=== PATIENT | female | born 1980 | race African-American/Black ===

== ENCOUNTER 2016-12-18 05:40 | Inpatient (IN) | payer OTHER ==
[2016-12-12 14:26] VITALS: BMI 39.5
--- NOTE | 2016-12-18 06:52 | HP ---
History & Physical Update - History History: No Change - Physical Physical: No Change - Assessment Assessment: No Change - Plan Plan: No Change
[2016-12-18] MEDS ORDERED: HYDROmorphone HCL CARPU-JECT 1 MG/1 ML DISP.SYRIN IVPB PRN (06:55)
[2016-12-18] MEDS ORDERED: oxyCODONE HCL 5 MG TABLET PO PRN (06:55)
[2016-12-18] MEDS ORDERED: IBUPROFEN 800 MG/8 ML IJ IVPB PRN (06:55)
[2016-12-18] MEDS ORDERED: CEFAZOLIN 2 GM/D5W 50 ML IVPB ONE (06:55)
[2016-12-18] MEDS ORDERED: SIMETHICONE 80 MG TAB.CHEW (FP) PO PRN (07:00)
[2016-12-18] MEDS ORDERED: DINOPROSTONE 10 MG VAGINAL SUPPOSITORY VG ONE (07:00)
[2016-12-18] MEDS ORDERED: ceFAZolin SODIUM 1 GM VIAL ONE ×3 (08:14→19:55)
[2016-12-18] MEDS ORDERED: ROPIVACAINE HCL 0.5% 30ML VIAL ONE (08:23)
[2016-12-18] MEDS ORDERED: MIDAZOLAM HCL 2 MG/2 ML SINGLE DOSE VIAL ONE ×2 (08:24)
[2016-12-18] MEDS ORDERED: VASOPRESSIN 20 UNITS/ML VIAL IV ONE (10:09)
[2016-12-18] MEDS ORDERED: DEXAMETHASONE SOD PHOSPHATE 4 MG/1 ML VIAL ONE (10:26)
[2016-12-18] MEDS ORDERED: PROPOFOL 20 ML ONE (10:27)
[2016-12-18] MEDS ORDERED: LIDOCAINE HCL 2% (20ML MULTI-DOSE VIAL) NR ONE (10:28)
[2016-12-18] MEDS ORDERED: ROCURONIUM BROMIDE 50 MG/5 ML VIAL ONE ×2 (10:28→11:05)
[2016-12-18] MEDS ORDERED: ceFAZolin SODIUM 1 GM VIAL IVPB ONE (10:30)
[2016-12-18] MEDS ORDERED: PHENYLEPHRINE HCL 10 MG/1 ML SINGLE DOSE VIAL ONE (11:17)
[2016-12-18] MEDS ORDERED: ePHEDrine SULFATE 50 MG/1 ML AMPULE ONE (11:17)
[2016-12-18] MEDS ORDERED: SUCCINYLCHOLINE CHLORIDE 200 MG/10 ML VIAL ONE (11:19)
[2016-12-18] MEDS ORDERED: DEXAMETHASONE SOD PHOSPHATE 4 MG/1 ML VIAL IVPUSH PRN (11:47)
[2016-12-18] MEDS ORDERED: PROMETHAZINE HCL 25 MG/1 ML VIAL IVPB PRN (11:47)
[2016-12-18] MEDS ORDERED: NEOSTIGMINE METHYLSULFATE 0.5 MG/ML - 10 ML MDV ONE (12:36)
[2016-12-18] MEDS ORDERED: GLYCOPYRROLATE 0.2 MG/1 ML VIAL ONE (12:36)
[2016-12-18] MEDS ORDERED: KETOROLAC TROMETHAMINE 30 MG/1 ML VIAL ONE (13:07)
[2016-12-18] MEDS ORDERED: HYDROmorphone HCL CARPU-JECT 2 MG/1 ML DISP.SYRIN ONE (13:36)
[2016-12-18] MEDS ORDERED: HYDROmorphone *PCA* 10MG/50ML DISP.SYRIN PCA ONE (13:36)
[2016-12-18] MEDS: HYDROmorphone HCL CARPU-JECT 1 MG/1 ML DISP.SYRIN IVPUSH PRN ×2 (13:37→13:47)
[2016-12-18 17:18] LABS: MCH 25.2 pg (25.7-33.7); MCHC 32.1 g/dl (32.0-36.0); MEAN CELL VOLUME 78.4 fl (80-96); MEAN PLT VOLUME 7.8 fl (7.5-11.1); PLATELET COUNT 314 K/MM3 (134-434); RDW 21.8 % (11.6-15.6)
[2016-12-18 17:26] LABS: WHITE BLOOD COUNT 32.3 K/mm3 (4.0-10.0)
[2016-12-18] MEDS: DEXTROSE 5%-LACTATED RINGERS 1,000 ML IV SCH (18:00)
--- NOTE | 2016-12-18 18:13 | OP ---
Operative Note - Note: Operative Date: 12/18/16 Pre-Operative Diagnosis: Leiomyomatous Uterus. Submucosal myoma. Subserosal myoma. Menorrhagia Operation: Abdominal myomectomy Findings: 18 cm myomas removed large myomas from 10 cm, 9cm,8cm x2 various sizes Post-Operative Diagnosis: Same as Pre-op Surgeon: Emy Starks Vice President Quality: Stef Schulz Anesthesiologist/SYSTEM DEVELOPMENT ENGINEER: Raghu Clifton Jr. Anesthesia: General Specimens Removed: 18 myomas removed Estimated Blood Loss (mls): 1,500 Blood Volume Replaced (mls): 240 Operative Report Dictated: Yes
[2016-12-18] MEDS: CEFAZOLIN 1 GM/D5W 50 ML IVPB SCH (19:30)
[2016-12-18 20:24] LABS: PLATELET ESTIMATE ADEQUATE (NORMAL)
[2016-12-18 20:25] LABS: ANISOCYTOSIS 2+; OVALOCYTES 1+; POIKILOCYTOSIS 1+; POLYCHROMASIA 1+; TOXIC GRANULATION FEW
[2016-12-18] MEDS: ACETAMINOPHEN 500 MG TABLET (FP) PO PRN (22:49)
[2016-12-19] MEDS: DEXTROSE 5%-LACTATED RINGERS 1,000 ML IV SCH ×2 (01:53→10:30)
[2016-12-19] MEDS ORDERED: CEFAZOLIN (PRE-DOCKED) 50 ML IVPB ONE (02:00)
[2016-12-19 08:00] LABS: BASOPHIL 0.1 % (0-2.0); MCH 25.6 pg (25.7-33.7); MCHC 33.3 g/dl (32.0-36.0); MEAN PLT VOLUME 7.9 fl (7.5-11.1); NEUTROPHILS 79.8 % (42.8-82.8); PLATELET COUNT 243 K/MM3 (134-434); RDW 20.9 % (11.6-15.6); WHITE BLOOD COUNT 17.8 K/mm3 (4.0-10.0)
--- NOTE | 2016-12-19 08:09 | SURG ---
Surgery Distribution Clerk Note Distribution Clerk: Stef Schulz PA-C Date of Service: 12/18/16 Diagnosis: Leiomyomatous Uterus. Submucosal myoma. Subserosal myoma. Menorrhagia Procedure: Abdominal myomectomy I was present for the entirety of the operative procedure. For further detail, please refer to operative report. Visit type - Case Type Case Type: Scheduled Admission - New patient This patient is new to me today: Yes Date on this admission: 12/19/16
--- NOTE | 2016-12-19 08:12 | PN ---
Progress Note (short form) - Note Progress Note: POD #1 - s/p abdominal myomectomy under general anesthesia with dilaudid PURCHASING ADMINISTRATIVE ASSISTANT for postop pain management. Pt. required PRBC transfusion intraoperatively. Currently, pt. doing well, resting comfortably in bed. No complaints. Good pain control. No apparent anesthetic complications noted. Continue current care.
--- NOTE | 2016-12-19 08:59 | OP ---
DATE OF OPERATION: 12/18/2016 PREOPERATIVE DIAGNOSIS: Leiomyomatous uterus, submucous myoma, subserosal myoma , menorrhagia, and anemia. OPERATION: Abdominal myomectomy, an extensive abdominal myomectomy. POSTOPERATIVE DIAGNOSIS: Leiomyomatous uterus, submucous myoma, subserosal myoma, menorrhagia, and anemia. SURGEON: Emy Starks MD LOFTER: ADELAIDA See PROCEDURE: Patient was taken to the operating room, placed in supine position, prepped and draped in the usual sterile fashion. A time-out was performed in accordance with hospital regulations. Pfannenstiel skin incision was made with a scalpel. A very wide Pfannenstiel incision was made after examination of the abdomen revealed a 26-cm uterus. Cautery was then used to go through the layers of abdominal wall to the level of the fascia. Fascia was cut in the midline, and cautery was then used to open the fascia in smiling fashion. Linnea was then used to bluntly dissect the rectus muscle off the fascia. The muscle was split in the midline. Peritoneal cavity was then entered and carried up and down due to examination under anesthesia revealed the uterus about 26 cm in size. Rectus muscle was then cut transversely and extended out. Uterus was then exteriorized. A pedunculated 10-cm myoma was noted and was first to be enucleated out and submitted. Numerous other fibroids were noted within the uterus both anteriorly and posteriorly. Large 8-cm and 9-cm myomas were removed in the anterior aspect of the uterus, and also in the posterior aspect of the uterus, numerous incisions were made, where large 9-cm and 8-cm fibroids were removed. Examination also revealed endometrial cavity noted to have large 4-cm and 5-cm myomas, which were removed from the cavity. Cavity was noted to be entered anteriorly, and after extensive work was done, approximately an hour and a half of removal of fibroids, blood loss was noted to be significant. Then, 3 packed cell units of blood were given to the patient intraoperatively. Then, all incisions were closed using 1 Vicryl suture in layers. Muscle layer closed in continuous and locking, and serosal layers closed in imbricating layers. Numerous incisions were closed, approximately 10 incisions were closed both anterior and posterior and fundally. The myomas were removed, subserosal myomas were removed , and uterus was then closed using 0 Vicryl suture. Hemostasis was achieved using figure-of-8 sutures. Interceed was then placed on the uterus after hemostasis was achieved, and uterus anteriorized. Still a large uterus; however, this was approximately 14 cm in size versus the 28 that was encountered prior to surgery. Three Interceeds were used to cover all the incisions to prevent further adhesions. Interceed was used, and this may cause fever or infection later down the road, but due to the nature of the surgery, Interceed was necessary. Peritoneum was then closed using 0 Vicryl suture. Muscles were reapproximated in a pursestring suture as well as interrupted sutures. Fascia was then closed in 2 parts using 0 Vicryl suture. Skin was then closed using 3-0 Vicryl in subcuticular fashion. Wound was washed and dressed. Then, 3-0 Vicryl in subcuticular fashion. Wound was washed and dressed. Patient also had subcutaneous layer with 0 Vicryl suture. Estimated blood loss was 1500 mL. Patient was taken to recovery room in stable condition. Renetta [id number]
[2016-12-19] MEDS: ENOXAPARIN NA (PORCINE) 40 MG/0.4 ML DISP.SYRIN SQ SCH (10:30)
[2016-12-19] MEDS: ACETAMINOPHEN 500 MG TABLET (FP) PO PRN (10:49)
--- NOTE | 2016-12-19 11:11 | PN ---
Progress Note (short form) - Note Progress Note: POD #1 s/p Abdominal myomectomy (Leiomyomatous Uterus. Submucosal myoma. Subserosal myoma. Menorrhagia) Resting comfortably. C/o incisional tenderness. Pain control well via PLASTIC WELDING MACHINE OPERATOR. Hasn' t gotten out of bed yet. Her woods cath was removed at 9am but she hasn't voided yet. Tolerating liquid diet. Feels like she needs to pass gas but nothing yet. Denies n/v/f/c, CP, SOB or palpitations. Last Vital Signs Temp Pulse Resp BP Pulse Ox 98.5 F 100 H 20 98/73 96 / 06:00 12/19/16 06:00 12/19/16 06:00 12/19/16 06:00 12/18/16 22:00 CBC 12/19/16 07:00 PE General: Alert. NAD Pulm: CTA b/l anteriorly Cor: RRR Abd: Obese body habitus. Pfannenstiel incision c/d/i. No hematoma LE: soft. NT b/l. SCDs on. Problem List - Problems (1) Leiomyoma of body of uterus Assessment/Plan: POD #1 s/p (open) abdominal myomectomy Cont PLASTIC WELDING MACHINE OPERATOR pain management OOB and ambulate Advance diet as tolerated Trial of void in progress Anemia secondary to acute blood loss during surgery --> monitor H/H f/u repeat CBC in AM Code(s): D25.9 - LEIOMYOMA OF UTERUS, UNSPECIFIED Qualifiers: Uterine leiomyoma location: intramural Qualified Code(s): D25.1 - Intramural leiomyoma of uterus
--- NOTE | 2016-12-19 12:55 | PATH ---
Surgical Pathology Report Patient Name: TAIWO STACK [facility]. Rec. #: [id number] /Age/Gender: 1980 (Age: 36) / F Account: [id number] Location: [address] [place] [address]/[facility] Taken: 12/18/2016 Received: 12/18/2016 Reported: 12/19/2016 Physicians: Emy Starks M.D. Specimen(s) Received FIBROID TUMORS Clinical History Fibroids, menorrhagia Final Diagnosis UTERUS, ABDOMINAL MYOMECTOMY: LEIOMYOMATA, AGGREGATE WEIGHT 2843 GRAMS. Electronically Signed Shukri Tabares M.D. Gross Description Received in formalin, labeled "fibroid tumors," is a 2843 g aggregate of 23 ap[place]aca, firm to rubbery masses, consistent with fibroids. The fibroids range from 1.0-15.0 cm in greatest dimension. Sectioning reveals apodaca, firm to rubbery parenchyma with whorled architecture. No areas of hemorrhage or necrosis are identified. Resistor Testing Machine Operator sections are submitted in cassettes as follows: 4-8-ngmmqykuzlvnlm smaller fibroids; 7-site safety representative sections of one fibroid; 5-8-atgnlqczfxddjp sections of one fibroid; 19-33-qghwnvxvufbaqc sections of one fibroid; 81-41-todgxciolmatxm sections of one fibroid; 86-92-nrozhpvtyvnkxl sections of largest fibroid. 12/18/2016 [facility]12/18/2016
[2016-12-19] MEDS: ONDANSETRON 4 MG/2 ML VIAL IVPB PRN (14:28)
[2016-12-19 17:34] LABS: BASOPHIL 0.2 % (0-2.0); EOSINOPHIL 0.2 % (0-4.5); MCH 25.2 pg (25.7-33.7); MCHC 32.7 g/dl (32.0-36.0); MEAN PLT VOLUME 7.3 fl (7.5-11.1); NEUTROPHILS 82.3 % (42.8-82.8); PLATELET COUNT 220 K/MM3 (134-434); RDW 21.3 % (11.6-15.6); WHITE BLOOD COUNT 16.2 K/mm3 (4.0-10.0)
[2016-12-19] MEDS ORDERED: OXYCODONE/APAP 5/325MG COMBO TABLET PO PRN ×2 (22:16)
[2016-12-19] MEDS ORDERED: ACETAMINOPHEN 325 MG TABLET (FP) PO PRN (22:24)
[2016-12-19] MEDS ORDERED: oxyCODONE HCL 5 MG TABLET PO PRN (22:24)
[2016-12-20] MEDS: DEXTROSE 5%-LACTATED RINGERS 1,000 ML IV SCH (05:00)
[2016-12-20] MEDS: oxyCODONE HCL 5 MG TABLET PO PRN ×2 (05:33→17:41)
[2016-12-20] MEDS: ACETAMINOPHEN 325 MG TABLET (FP) PO PRN ×2 (05:34→17:42)
[2016-12-20] MEDS ORDERED: NORMAL SALINE FLUSH 0.9% 5 ML SYRINGE IVPUSH ONE (07:00)
--- NOTE | 2016-12-20 07:04 | PN ---
Progress Note (SOAP) - Subjective Chief Complaint: Pt not passing gas elevated WBC - Current Medications Current Medications: Active Medications Acetaminophen (Tylenol -) 1,000 mg PO Q6H PRN PRN Reason: FEVER OR PAIN Last Admin: 12/19/16 10:49 Dose: 1,000 mg Acetaminophen (Tylenol -) 325 mg PO Q4H PRN PRN Reason: PAIN Stop: 12/22/16 22:23 Acetaminophen (Tylenol -) 650 mg PO Q4H PRN PRN Reason: PAIN Stop: 12/22/16 22:23 Last Admin: 12/20/16 05:34 Dose: 650 mg Dexamethasone Sodium Phosphate (Decadron Injection -) 4 mg IVPUSH ONCE PRN PRN Reason: NAUSEA AND/OR VOMITING Diphenhydramine HCl (Benadryl Injection -) 12.5 mg IVPUSH ONCE PRN PRN Reason: FOR ITCHING Enoxaparin Sodium (Lovenox -) 40 mg SQ DAILY [facility] Last Admin: 12/19/16 10:30 Dose: 40 mg Hydromorphone HCl (Dilaudid Injection -) 1 mg IVPUSH [id number] PRN PRN Reason: PAIN Stop: 12/21/16 11:50 Last Admin: 12/18/16 13:47 Dose: 1 mg Dextrose/Lactated Ringer's (D5-Lr -) 1,000 mls @ 125 mls/hr IV ASDIR [facility] Last Admin: 12/20/16 05:00 Dose: 125 mls/hr Ibuprofen (Caldolor Injection -) 800 mg IVPB Q8H PRN PRN Reason: FEVER Ondansetron HCl (Zofran Injection) 4 mg IVPB Q6H PRN PRN Reason: NAUSEA Last Admin: 12/19/16 14:28 Dose: 4 mg Oxycodone HCl (Roxicodone -) 5 mg PO Q4H PRN PRN Reason: PAIN Oxycodone HCl (Roxicodone -) 5 mg PO Q4H PRN PRN Reason: PAIN LEVEL 1-5 Oxycodone HCl (Roxicodone -) 10 mg PO Q4H PRN PRN Reason: PAIN LEVEL 6-10 Last Admin: 12/20/16 05:33 Dose: 10 mg Promethazine HCl (Phenergan Injection -) 12.5 mg IVPB Q6H PRN PRN Reason: NAUSEA AND/OR VOMITING Simethicone (Mylicon -) 80 mg PO Q4H PRN PRN Reason: GAS Last Admin: 12/19/16 14:29 Dose: 80 mg Sodium Chloride (Saline Lock Flush -) 5 ml IVPUSH ONCE ONE Stop: 12/20/16 07:01 - Objective Vital Signs: Vital Signs Temperature 99.6 F 12/20/16 05:30 Pulse Rate 112 H 12/20/16 05:30 Respiratory Rate 22 12/20/16 05:30 Blood Pressure 120/71 12/20/16 05:30 O2 Sat by Pulse Oximetry (%) 99 12/19/16 09:00 Constitutional: Yes: Well Nourished, No Distress Gastrointestinal: Yes: WNL, Soft, Abdomen, Obese Breast(s): Yes: WNL Musculoskeletal: Yes: WNL Extremities: Yes: WNL Edema: No Wound/Incision: Yes: Clean/Dry, Well Approximated Labs Lab Results: CBC, BMP 12/19/16 15:15 Problem List - Problems (1) H/O myomectomy Code(s): Z98.89 - OTHER SPECIFIED POSTPROCEDURAL STATES * DO NOT USE * Assessment/Plan POD 2 no flatus mild pain Plan OOB dulcolax CBC stat
[2016-12-20] MEDS: HYDROmorphone *PCA* 10MG/50ML DISP.SYRIN PCA SCH ×2 (07:52→07:53)
[2016-12-20] MEDS: CEFAZOLIN 1 GM/D5W 50 ML IVPB SCH (07:54)
--- NOTE | 2016-12-20 08:22 | PN ---
Progress Note (short form) - Note Progress Note: PAIN Follow up S/P Abdominal Myomectomy under GA and Dilaudid RAIL CAR UNLOADER RAIL CAR UNLOADER is discontinued today. Doing well. Eating her breakfast. No complication to Legal Job Titles seen. Linda Kirk.
[2016-12-20 08:24] LABS: BASOPHIL 0.3 % (0-2.0); EOSINOPHIL 0.1 % (0-4.5); MCH 24.8 pg (25.7-33.7); MCHC 32.3 g/dl (32.0-36.0); MEAN CELL VOLUME 76.8 fl (80-96); MEAN PLT VOLUME 7.3 fl (7.5-11.1); NEUTROPHILS 82.8 % (42.8-82.8); PLATELET COUNT 201 K/MM3 (134-434); RDW 22.1 % (11.6-15.6); WHITE BLOOD COUNT 16.1 K/mm3 (4.0-10.0)
[2016-12-20] MEDS: ENOXAPARIN NA (PORCINE) 40 MG/0.4 ML DISP.SYRIN SQ SCH (10:51)
[2016-12-20] MEDS ORDERED: IBUPROFEN 400 MG TABLET (FP) PO PRN (12:28)
[2016-12-20] MEDS: ONDANSETRON 4 MG/2 ML VIAL IVPB PRN ×2 (15:54→23:01)
[2016-12-20 23:17] LABS: MCH 26.2 pg (25.7-33.7); MCHC 32.6 g/dl (32.0-36.0); MEAN CELL VOLUME 80.2 fl (80-96); MEAN PLT VOLUME 7.9 fl (7.5-11.1); PLATELET COUNT 201 K/MM3 (134-434); RDW 20.6 % (11.6-15.6); WHITE BLOOD COUNT 12.2 K/mm3 (4.0-10.0)
[2016-12-21] MEDS: LACTATED RINGERS SOLUTION 1,000 ML IV SCH ×2 (06:22→16:00)
[2016-12-21] MEDS: oxyCODONE HCL 5 MG TABLET PO PRN ×3 (06:26→20:22)
[2016-12-21] MEDS: ACETAMINOPHEN 325 MG TABLET (FP) PO PRN ×3 (06:27→20:23)
[2016-12-21 07:52] LABS: BASOPHIL 0.4 % (0-2.0); EOSINOPHIL 0.4 % (0-4.5); MCH 26.6 pg (25.7-33.7); MCHC 33.5 g/dl (32.0-36.0); MEAN CELL VOLUME 79.5 fl (80-96); MEAN PLT VOLUME 7.7 fl (7.5-11.1); NEUTROPHILS 79.8 % (42.8-82.8); PLATELET COUNT 185 K/MM3 (134-434); RDW 20.9 % (11.6-15.6)
--- NOTE | 2016-12-21 10:21 | PN ---
Progress Note (short form) - Note Progress Note: Surgery- Dr. Starks Patient seen and examined. Patient states her pain is controlled. She states she is feeling some dizziness and weakness. She has been tolerating her diet without nausea or vomiting. She has been urinating without issue and passing flatus. She has been OOB and has been using her incentive spirometry. Last Vital Signs Temp Pulse Resp BP Pulse Ox 99.8 F H 110 H 20 141/68 99 12/21/16 05:57 12/21/16 05:57 12/21/16 05:57 12/21/16 05:57 12/19/16 09:00 CBC, BMP 12/21/16 07:20 Exam: Gen: NAD Cardio: RRR, mildly tachy Resp: CTA Abd: Obese, incision c/d/i without hematoma, soft, mild tenderness with palp near incision A/P POD #3 s/p (open) abdominal myomectomy H&H 7.5/22.3 from 8.0/24.4, HR [address] Starks- will transfuse one more unit PRBC now and repeat cbc this afternoon Continue regular diet pain control with oral pain medication
--- NOTE | 2016-12-21 10:30 | PN ---
[id number] Passing flatus, voiding, tolerating small amounts of regular diet but had some nausea overnight. Denies feeling dizzy or light headed, but feels tired. - Current Medication List Current Medications: Active Medications Acetaminophen (Tylenol -) 1,000 mg PO Q6H PRN PRN Reason: FEVER OR PAIN Last Admin: 12/19/16 10:49 Dose: 1,000 mg Acetaminophen (Tylenol -) 325 mg PO Q4H PRN PRN Reason: PAIN Stop: 12/22/16 22:23 Acetaminophen (Tylenol -) 650 mg PO Q4H PRN PRN Reason: PAIN Stop: 12/22/16 22:23 Last Admin: 12/21/16 06:27 Dose: 650 mg Dexamethasone Sodium Phosphate (Decadron Injection -) 4 mg IVPUSH ONCE PRN PRN Reason: NAUSEA AND/OR VOMITING Diphenhydramine HCl (Benadryl Injection -) 12.5 mg IVPUSH ONCE PRN PRN Reason: FOR ITCHING Enoxaparin Sodium (Lovenox -) 40 mg SQ DAILY [facility] Hydromorphone HCl (Dilaudid Injection -) 1 mg IVPUSH [id number] PRN PRN Reason: PAIN Stop: 12/21/16 11:50 Last Admin: 12/18/16 13:47 Dose: 1 mg Dextrose/Lactated Ringer's (D5-Lr -) 1,000 mls @ 125 mls/hr IV ASDIR [facility] Last Admin: 12/20/16 05:00 Dose: 125 mls/hr Lactated Ringer's (Lactated Ringers Solution) 1,000 mls @ 125 mls/hr IV ASDIR [facility] Last Admin: 12/21/16 06:22 Dose: 125 mls/hr Ibuprofen (Motrin -) 800 mg PO Q8H PRN PRN Reason: FEVER Ondansetron HCl (Zofran Injection) 4 mg IVPB Q6H PRN PRN Reason: NAUSEA Last Admin: 12/20/16 23:01 Dose: 4 mg Oxycodone HCl (Roxicodone -) 5 mg PO Q4H PRN PRN Reason: PAIN LEVEL 1-5 Oxycodone HCl (Roxicodone -) 10 mg PO Q4H PRN PRN Reason: PAIN LEVEL 6-10 Last Admin: 12/21/16 06:26 Dose: 10 mg Promethazine HCl (Phenergan Injection -) 12.5 mg IVPB Q6H PRN PRN Reason: NAUSEA AND/OR VOMITING Simethicone (Mylicon -) 80 mg PO Q4H PRN PRN Reason: GAS Last Admin: 12/19/16 14:29 Dose: 80 mg - Objective Vital Signs: Vital Signs Temperature 99.8 F H 12/21/16 05:57 Pulse Rate 110 H 12/21/16 05:57 Respiratory Rate 20 12/21/16 05:57 Blood Pressure 141/68 12/21/16 05:57 O2 Sat by Pulse Oximetry (%) 99 12/19/16 09:00 Constitutional: Yes: Well Nourished, Calm Eyes: Yes: Conjunctiva Clear, EOM Intact HENT: Yes: Atraumatic, Normocephalic Cardiovascular: Yes: Tachycardia Gastrointestinal: Yes: Normal Bowel Sounds, Soft Musculoskeletal: Yes: WNL Extremities: Yes: WNL Wound/Incision: Yes: Clean/Dry, Well Approximated, Steri Strips Neurological: Yes: Alert, Oriented Psychiatric: Yes: Alert, Oriented Labs: CBC, BMP 12/21/16 07:20 Problem List - Problems (1) H/O myomectomy Code(s): Z98.89 - OTHER SPECIFIED POSTPROCEDURAL STATES * DO NOT USE * (2) Anemia Code(s): D64.9 - ANEMIA, UNSPECIFIED Assessment/Plan POD 3 from abdominal myomectomy acute post op anemia due to blood loss hgb now 7.5, pt feeling better but still tired monitor vitals regular diet po pain meds possible discharge home today if stable
[2016-12-21] MEDS: ENOXAPARIN NA (PORCINE) 40 MG/0.4 ML DISP.SYRIN SQ SCH (10:48)
[2016-12-21 21:23] LABS: BASOPHIL 0.3 % (0-2.0); EOSINOPHIL 1.5 % (0-4.5); MCH 27.2 pg (25.7-33.7); MCHC 33.9 g/dl (32.0-36.0); MEAN CELL VOLUME 80.4 fl (80-96); MEAN PLT VOLUME 7.9 fl (7.5-11.1); NEUTROPHILS 76.8 % (42.8-82.8); PLATELET COUNT 203 K/MM3 (134-434); RDW 20.4 % (11.6-15.6); WHITE BLOOD COUNT 10.7 K/mm3 (4.0-10.0)
[2016-12-22] MEDS: oxyCODONE HCL 5 MG TABLET PO PRN ×2 (05:36→10:08)
[2016-12-22] MEDS: ACETAMINOPHEN 325 MG TABLET (FP) PO PRN ×2 (05:37→10:10)
[2016-12-22] MEDS: ENOXAPARIN NA (PORCINE) 40 MG/0.4 ML DISP.SYRIN SQ SCH (09:58)
--- NOTE | 2016-12-22 10:05 | PN ---
Progress Note (SOAP) - Subjective Chief Complaint: Pt feeling well no dizziness - Current Medications Current Medications: Active Medications Acetaminophen (Tylenol -) 1,000 mg PO Q6H PRN PRN Reason: FEVER OR PAIN Last Admin: 12/19/16 10:49 Dose: 1,000 mg Acetaminophen (Tylenol -) 325 mg PO Q4H PRN PRN Reason: PAIN Stop: 12/22/16 22:23 Acetaminophen (Tylenol -) 650 mg PO Q4H PRN PRN Reason: PAIN Stop: 12/22/16 22:23 Last Admin: 12/22/16 05:37 Dose: 650 mg Dexamethasone Sodium Phosphate (Decadron Injection -) 4 mg IVPUSH ONCE PRN PRN Reason: NAUSEA AND/OR VOMITING Diphenhydramine HCl (Benadryl Injection -) 12.5 mg IVPUSH ONCE PRN PRN Reason: FOR ITCHING Enoxaparin Sodium (Lovenox -) 40 mg SQ DAILY [facility] Last Admin: 12/21/16 10:48 Dose: Not Given Dextrose/Lactated Ringer's (D5-Lr -) 1,000 mls @ 125 mls/hr IV [facility] Last Admin: 12/20/16 05:00 Dose: 125 mls/hr Lactated Ringer's (Lactated Ringers Solution) 1,000 mls @ 125 mls/hr IV [facility] Last Admin: 12/21/16 16:00 Dose: Not Given Ibuprofen (Motrin -) 800 mg PO Q8H PRN PRN Reason: FEVER Ondansetron HCl (Zofran Injection) 4 mg IVPB Q6H PRN PRN Reason: NAUSEA Last Admin: 12/20/16 23:01 Dose: 4 mg Oxycodone HCl (Roxicodone -) 5 mg PO Q4H PRN PRN Reason: PAIN LEVEL 1-5 Oxycodone HCl (Roxicodone -) 10 mg PO Q4H PRN PRN Reason: PAIN LEVEL 6-10 Last Admin: 12/22/16 05:36 Dose: 10 mg Promethazine HCl (Phenergan Injection -) 12.5 mg IVPB Q6H PRN PRN Reason: NAUSEA AND/OR VOMITING Simethicone (Mylicon -) 80 mg PO Q4H PRN PRN Reason: GAS Last Admin: 12/19/16 14:29 Dose: 80 mg - Objective Vital Signs: Vital Signs Temperature 98.1 F 12/22/16 05:59 Pulse Rate 95 H 12/22/16 05:59 Respiratory Rate 20 12/22/16 05:59 Blood Pressure 140/95 12/22/16 05:59 O2 Sat by Pulse Oximetry (%) 96 12/21/16 21:00 Constitutional: Yes: Well Nourished, No Distress Gastrointestinal: Yes: WNL, Normal Bowel Sounds, Soft Musculoskeletal: Yes: WNL Extremities: Yes: WNL Wound/Incision: Yes: Clean/Dry, Well Approximated, Steri Strips, Open to air Labs Lab Results: CBC, BMP 12/21/16 21:00 Problem List - Problems (1) H/O myomectomy Code(s): Z98.89 - OTHER SPECIFIED POSTPROCEDURAL STATES * DO NOT USE * Assessment/Plan POD 4 sp transfusions doing well Plan DC home iron percocet
--- NOTE | 2016-12-22 10:06 | DS ---
Physical Exam-BULL BUCKER Vital Signs: Vital Signs Temperature 98.1 F 12/22/16 05:59 Pulse Rate 95 H 12/22/16 05:59 Respiratory Rate 20 12/22/16 05:59 Blood Pressure 140/95 12/22/16 05:59 O2 Sat by Pulse Oximetry (%) 96 12/21/16 21:00 Constitutional: Yes: Well Nourished, No Distress Labs: CBC, BMP 12/21/16 21:00 Discharge Summary Reason For Visit: FIBROIDS/MENORRHAGIA Current Active Problems Anemia (Acute) H/O myomectomy (Acute) Leiomyoma of body of uterus (Acute) Procedures: Principal: Abdominal myomectomy complex Other Procedures: Transfusion x 6 units Condition: Improved - Instructions Diet, Activity, Other Instructions: Dr. Emy Espinosa Screener Operator discharge instructions Physical activity Resume your normal everyday activity as tolerated no heavy lifting or exercise until seen by your surgeon. You may walk unlimited letitia of and climb stairs. You may resume driving the car when you feel safe and comfortable behind the wheel. No sexual activity as instructed by Dr. Starks. Wound care If you have a bandage, leave it on, and keep dry for 48-72 hours. After that time discard the outer bandage. If they are tapes on the skin under the out of bandage leave them in place. They will peel off in the next 7 to 10 days. Do Not Peel them off. You may shower the day after surgery. If there are tapes present on the skin, you may shower over them. Diet There are no dietary restrictions. Eat healthy, high-fiber foods. Drink 6 to 8 glasses of liquid each day. This will assist in keeping your bowels are regular. Pain management You may take Tylenol or acetaminophen or Ibuprofen (for example, Motrin, Advil etc.) from my pain prescription medication is ordered should be taken as prescribed for moderate to severe pain. Call Dr. Starks for any of the following: Severe pain not relieved by medication Fever of 101 or higher Excessive bleeding or drainage on dressing Inability to urinate Call the office at [phone] for an appointment in seven days. Disposition: HOME - Home Medications Comprehensive Discharge Medication List: Ambulatory Orders Ibuprofen [Advil -] 200 mg PO PRN PRN 12/12/16 Multivitamins [Tab-A-Vit -] 1 tab PO DAILY 12/12/16 Oxycodone HCl/Acetaminophen [Percocet 5-325 mg Tablet] 1 tab PO Q4H PRN #20 tablet MDD 6 12/19/16
[2016-12-22 11:44] VITALS: BP 145/93
[2016-12-22 13:21] VITALS: PULSE 95; TEMP 98.1
== END 2016-12-22 14:30 | disposition home or self-care (01) | DRG 742 ==
LOC: JSAMEDAYSX 05:40 → EDSTATUS 08:00 → J6S 21:59
PROVIDERS: ADMIT Obstetrics & Gynecology; ATTEND Obstetrics & Gynecology
PROC: 30233N1 Transfusion of Nonautologous Red Blood Cells into Peripheral Vein, Percutaneous Approach (ICD-10-PCS; 2016-12-18)
PROC: 0UB90ZZ Excision of Uterus, Open Approach (ICD-10-PCS; principal; 2016-12-18 09:30)
DX: D25.0 Submucous leiomyoma of uterus (principal); D62 Acute posthemorrhagic anemia; D25.2 Subserosal leiomyoma of uterus; E66.8 Other obesity; Z68.37 Body mass index [BMI] 37.0-37.9, adult; Z71.3 Dietary counseling and surveillance
CPT/HCPCS: 36415; 36430; 36511; 84703; 85025; 85027; 86850; 86900; 86901; 86922; 88305-TC; 94760; P9038; P9058